=== PATIENT | female | born 1985 | race Caucasian/White ===

== ENCOUNTER → 2020-12-23 21:36 | Observation (INO) ==
[2020-12-23 20:17] LABS: Bacteria,Urine Few per hpf (None-Few); Bilirubin,Urine Negative (Negative); Blood,Urine Small (Negative); Clarity,Urine Clear (Clear); Color,Urine Colorless (Yellow); Glucose,Urine (UA) Normal (Normal); Ketones,Urine Negative (Negative); Leukocyte Esterase,Urine Negative (Negative); Mucus,Urine Few per lpf (None-Few); Nitrite,Urine Negative (Negative); Protein,Urine Negative (Neg-Trace); RBC,Urine 0-3 per hpf (0-3); Specific Gravity,Urine 1.007 (1.010-1.025); Squamous Epithelial Cell,Urine Few per hpf (None-Few); Urobilinogen,Urine Normal (Normal); WBC,Urine 0-3 per hpf (0-3)
[~2020-12-23 21:36] MED LIST: Nitrofurantoin (BID) 100 MG CAPSULE PO ONE; Ringers Solution, Lactated 1,000 ML IVC ONE; Ringers Solution, Lactated 1,000 ML ONE
== END | disposition home or self-care (01) ==
LOC: 1NENULAB
PROVIDERS: ADMIT Student in an Organized Health Care Education/Training Program; ATTEND Student in an Organized Health Care Education/Training Program

== ENCOUNTER 2021-01-02 14:12 | Inpatient (IN) ==
[2021-01-02] MEDS ORDERED: Metoclopramide 10 MG/2 ML VIAL IVP PRN (14:35)
[2021-01-02] MEDS ORDERED: Lidocaine 1% 20 ML MDV INFILT PRN (14:35)
[2021-01-02] MEDS ORDERED: Ondansetron 4 MG/2 ML VIAL IVP PRN (14:35)
[2021-01-02] MEDS ORDERED: Famotidine 20 MG/2 ML VIAL IVP PRN (14:35)
[2021-01-02] MEDS ORDERED: Naloxone 0.4 MG/ML INJ IVP PRN (14:35)
[2021-01-02 14:43] LABS: Bacteria,Urine Few per hpf (None-Few); Bilirubin,Urine Negative (Negative); Blood,Urine Trace (Negative); Clarity,Urine Clear (Clear); Color,Urine Colorless (Yellow); Glucose,Urine (UA) Normal (Normal); Ketones,Urine Negative (Negative); Leukocyte Esterase,Urine Negative (Negative); Nitrite,Urine Negative (Negative); Protein,Urine Negative (Neg-Trace); RBC,Urine 0-3 per hpf (0-3); Specific Gravity,Urine 1.006 (1.010-1.025); Squamous Epithelial Cell,Urine Few per hpf (None-Few); Urobilinogen,Urine Normal (Normal); WBC,Urine 0-3 per hpf (0-3)
[2021-01-02] MEDS ORDERED: Betamethasone Acet/SodPhos 30 MG/5 ML VIAL IM SCH (14:45)
[2021-01-02] MEDS ORDERED: Azithromycin 250 MG TABLET PO SCH (14:45)
[2021-01-02] MEDS: Ampicillin 1,000 MG in 0.9 % Sodium Chloride Mini Bag 100 ML IVPB SCH ×3 (15:23→23:20)
[2021-01-02 15:36] LABS: Basophils % 0.2 %; Eosinophils # 0.2 K/mcL (0.0-0.6); Eosinophils % 1.4 %; Hematocrit 37.1 % (35.3-44.9); Hemoglobin 12.7 g/dL (11.5-15.4); Immature Granulocytes % 1.2 % (0-4); Lymphocytes # 1.7 K/mcL (0.6-4.6); Lymphocytes % 11.9 %; Mean Corpuscular HGB Conc 34.2 g/dL (31.6-35.5); Mean Corpuscular Hemoglobin 32.2 pg (28.0-33.3); Mean Corpuscular Volume 94.2 fL (83.0-100.0); Mean Platelet Volume 10.6 fL (9.4-12.4); Monocytes # 1.3 K/mcL (0.0-1.3); Monocytes % 8.9 %; Neutrophils # 10.8 K/mcL (1.6-8.9); Platelet Count 220 K/mcL (140-400); Red Blood Count 3.94 M/mcL (3.82-4.97); Red Cell Distribution Width 11.9 % (11.5-14.5); Segmented Neutrophils % 76.4 %; White Blood Count 14.1 K/mcL (4.3-11.1)
[2021-01-02] MEDS ORDERED: Nitrofurantoin (BID) 100 MG CAPSULE PO SCH (21:00)
[2021-01-02 21:18] LABS: Influenza A PCR Negative (Negative); Influenza B PCR Negative (Negative); Resp. Syncytial Virus PCR Negative (Negative)
[2021-01-02 21:23] LABS: SARS-CoV-2 by PCR (In House) Negative (Negative)
[2021-01-02] MEDS ORDERED: EPHEDrine 50 MG/ML VIAL IVP PRN (21:27)
[2021-01-02] MEDS ORDERED: Epidural Premix (fent/bupiv) 110 ML EP SCH (21:30)
[2021-01-02] MEDS ORDERED: Acetaminophen 325 MG TABLET PO ONE (21:35)
[2021-01-03] MEDS ORDERED: Ringers Solution, Lactated 1,000 ML ONE (02:24)
[2021-01-03] MEDS: *HR* Nalbuphine 10 MG/ML AMPUL IV PRN ×2 (02:33→03:52)
[2021-01-03] MEDS ORDERED: Oxytocin 20 units/ LR 1000 mL 20 UNIT/1,000 ML BAG IVC ONE ×2 (03:38→05:57)
[2021-01-03] MEDS ORDERED: Lanolin 7 G OINT...G. TP PRN (05:57)
[2021-01-03] MEDS ORDERED: Oxytocin 20 units/ LR 1000 mL 20 UNIT/1,000 ML BAG IVC SCH (05:57)
[2021-01-03] MEDS ORDERED: Benzocaine/Menthol 56 GM AEROSOL SPRAY TP PRN (05:57)
[2021-01-03] MEDS ORDERED: Acetaminophen 325 MG TABLET PO PRN (06:00)
[2021-01-03] MEDS: Prenatal Vit/FA 1 EACH TABLET PO SCH (09:11)
[2021-01-03] MEDS: Ibuprofen 600 MG TABLET PO PRN ×2 (09:11→22:21)
[2021-01-03] MEDS: Nitrofurantoin (BID) 100 MG CAPSULE PO SCH ×2 (09:12→22:21)
[2021-01-04] MEDS: Nitrofurantoin (BID) 100 MG CAPSULE PO SCH (08:42)
[2021-01-04] MEDS: Prenatal Vit/FA 1 EACH TABLET PO SCH (08:42)
[2021-01-04 13:52] VITALS: BP 91/51
== END 2021-01-04 13:45 | disposition home or self-care (01) | DRG 805 ==
LOC: 1NENULAB → 1NENUOBS 01-03 05:57
PROVIDERS: ADMIT Obstetrics & Gynecology; ATTEND Obstetrics & Gynecology